=== PATIENT | male | born 1985 | race American Indian/Alaskan Native ===

== ENCOUNTER 2019-03-12 17:53 | Emergency (ER) | payer SELFPAY ==
--- NOTE | 2019-03-12 18:47 | Emergency Department Report ---
Chief Complaint: Skin/Abscess/Foreign Body Stated Complaint: (R) LEG SPIDER BITE/PAIN Time Seen by Provider: 03/12/19 18:45 - HPI History of Present Illness: This is a 33 y.o. M that presents to the ER with painful abscess to RLE x 3 days. Patient think he was bitten by a spider. Reports increasing pain with weight bearing. No significant PMH MSE screening note: Focused history and physical exam performed. Due to findings the following was ordered: ED Disposition for MSE Condition: Stable
[2019-03-12 18:50] VITALS: BP 130/73
== END 2019-03-12 20:25 | disposition left against medical advice (07) ==
LOC: EDBD → ED 17:53
DX: L02.415 Cutaneous abscess of right lower limb (principal); Z53.21 Procedure and treatment not carried out due to patient leaving prior to being seen by health care provider

== ENCOUNTER 2019-03-13 09:03 | Emergency (ER) | payer OTHER ==
[2019-03-13 09:10] VITALS: BP 131/75
[2019-03-13] MEDS ORDERED: TRIPLE ANTIBIOTIC TP ONE (10:39)
[2019-03-13] MEDS ORDERED: BACTRIM DS PO ONE (10:39)
--- NOTE | 2019-03-13 10:41 | Emergency Department Report ---
Abscess Boil HPI - HPI Chief Complaint: Skin/Abscess/Foreign Body Stated Complaint: (R) LEG SPIDER BITE/PAIN Time Seen by Provider: 03/13/19 10:03 Duration: 3 Days Location: Lower Extremity Severity: Mild History: Yes Insect Bite, No Fever, No Pain, No Purulent Drainage, No Numbness, No Foreign Body, No Previous History HPI: Pt is a 33-year-old male who comes in with an insect bite to his right lower extremity that happened 4 days ago. Patient states that it swelled and he popped it. The area is open and draining. There is no surrounding cellulitis. He is ambulatory and without fever. Home Medications: Previous Rx's Medication Instructions Recorded Last Taken Type Sulfamethoxazole/Trimethoprim 1 each PO BID #10 tablet 03/13/19 Unknown Rx [Bactrim DS TAB] Allergies/Adverse Reactions: Allergies Allergy/AdvReac Type Severity Reaction Status Date / Time No Known Allergies Allergy Verified 03/13/19 09:05 ED Review of Systems ROS: Stated complaint: (R) LEG SPIDER BITE/PAIN Other details as noted in HPI Comment: All other systems reviewed and negative Constitutional: denies: fever ENT: denies: as per HPI, throat pain Cardiovascular: denies: chest pain Endocrine: denies: intolerance to cold Gastrointestinal: denies: vomiting Genitourinary: denies: dysuria Musculoskeletal: denies: as per HPI Skin: as per HPI, lesions Neurological: denies: headache Psychiatric: denies: anxiety Hematological/Lymphatic: denies: as per HPI ED Past Medical Hx - Past Medical History Previous Medical History?: No - Surgical History Past Surgical History?: No - Social History Smoking Status: Never Smoker Substance Use Type: Marijuana - Medications Home Medications: Home Medications Medication Instructions Recorded Confirmed Last Taken Type Sulfamethoxazole/Trimethoprim 1 each PO BID #10 tablet 03/13/19 Unknown Rx [Bactrim DS TAB] ED Abscess Boil Physical Exam - Exam General: Vital signs noted. No distress. Alert and acting appropriately. Size: 2 cm Exam: Yes Tenderness, Yes Normal Neurologic Exam, Yes Normal Circulation, No Fluctuance, No Surrounding Cellulites/Erythema, No Lymphangitis, No Crepitation, No Heart Murmur ED Course Vital Signs 03/13/19 09:09 Temperature 98.3 F Pulse Rate 93 H Respiratory 18 Rate Blood Pressure 131/75 O2 Sat by Pulse 99 Oximetry Critical care attestation.: If time is entered above; I have spent that time in minutes in the direct care of this critically ill patient, excluding procedure time. ED Medical Decision Making - Medical Decision Making no necrosis non toxic ambulatory afebrile insect bite is draining medicated with bactrim discharge instructions given dc home with dc plan of care Vital Signs 03/13/19 09:09 Temperature 98.3 F Pulse Rate 93 H Respiratory 18 Rate Blood Pressure 131/75 O2 Sat by Pulse 99 Oximetry - Differential Diagnosis insect bite ED Disposition Clinical Impression: Insect bite Disposition: DC-01 TO HOME OR SELFCARE Is pt being admited?: No Does the pt Need Aspirin: No Condition: Stable Instructions: Abscess (ED) Additional Instructions: clean daily with soap and water med as ordered today motrin or tylenol for pain Prescriptions: Sulfamethoxazole/Trimethoprim [Bactrim DS TAB] 1 each PO BID #10 tablet Referrals: GUADALUPE MENDOZA MD [Primary Care Provider] - 3-5 Days Time of Disposition: 10:40
== END 2019-03-13 10:57 | disposition home or self-care (01) ==
LOC: EDBD → ED 09:03
DX: S80.861A Insect bite (nonvenomous), right lower leg, initial encounter (principal); F12.10 Cannabis abuse, uncomplicated; W57.XXXA Bitten or stung by nonvenomous insect and other nonvenomous arthropods, initial encounter; Y93.89 Activity, other specified; Y92.89 Other specified places as the place of occurrence of the external cause; Y99.8 Other external cause status
CPT/HCPCS: 99283; A6250